=== PATIENT | female | born 1965 | race Caucasian/White ===

== ENCOUNTER → 2020-11-12 | Outpatient (CLI) | payer OTHER ==
[~2020-11-12] MED LIST: ALBUTEROL1.25 MG/3 INH; AMLODIPINE BESYL5 MG PO; ASPIR 8181 MG PO; ASPIRIN EC81 MG PO; COZAAR100 MG PO; CRESTOR10 MG PO; CYMBALTA60 MG PO; DULERA 200 MCG8.8 GM INH; FUROSEMIDE40 MG PO; GABAPENTIN100 MG PO; HYDROCODON-ACE1 EAC2 PO; HYDROXYZINE HCL10 MG PO; K-DUR TAB 10 M10 MEQ PO; K-TAB ER20 MEQ PO; MICARDIS80 MG PO; MICROZIDE12.5 MG PO; NORCO 7.5-3251 EACH PO; PROZAC10 MG PO; SINGULAIR10 MG PO; STIOLTO RESPIMAT INH; TUDORZA PRESS400 MCG INH; VENTOLIN HFA 66.7 GM INH; VITAMIN D3 PO; ZYLOPRIM 300 M300 MG PO
[2020-11-12 15:47] LABS: RED BLOOD COUNT 5.82 M/UL (4.00-5.10)
[2020-11-12 16:09] LABS: BUN/CREATININE RATIO 22 (0-10)
[2020-11-13 12:15] LABS: ANTISTREPTOLYSIN O AB 20.4 IU/mL (0.0-200.0); RHEUMATOID ARTHRITIS FACTOR <10.0 IU/mL (0.0-13.9)
[2020-11-14 07:11] LABS: VITAMIN D, 25-HYDROXY 35.3 ng/mL (30.0-100.0)
== END ==
LOC: LAB 14:29
PROVIDERS: Nurse Practitioner Family
DX: Z00.00 Encounter for general adult medical examination without abnormal findings (principal); K21.9 Gastro-esophageal reflux disease without esophagitis; M25.50 Pain in unspecified joint; R06.02 Shortness of breath; I10 Essential (primary) hypertension; R53.83 Other fatigue; E55.9 Vitamin D deficiency, unspecified; E78.5 Hyperlipidemia, unspecified; I27.81 Cor pulmonale (chronic)
CPT/HCPCS: 80053; 80061; 82607; 83880; 84439; 84443; 84550; 85025; 85652; 86038; 86060; 86140; 86431

== ENCOUNTER → 2020-11-27 | Outpatient (CLI) | payer OTHER | LOC: OPSV 12:00 | DX: D75.1 Secondary polycythemia (principal); R06.02 Shortness of breath | CPT/HCPCS: 99195 ==

== ENCOUNTER → 2020-11-28 | Outpatient (CLI) | payer OTHER ==
[2020-11-28 13:17] LABS: HEMOGLOBIN 15.4 gm/dl (12.3-15.3); RED BLOOD COUNT 5.29 M/UL (4.00-5.10); WHITE BLOOD COUNT 5.2 K/UL (4.5-11.0)
== END ==
LOC: LAB 12:02
PROVIDERS: Nurse Practitioner Family
DX: D75.1 Secondary polycythemia (principal)
CPT/HCPCS: 36415; 85025

== ENCOUNTER → 2021-01-14 | Outpatient (CLI) | payer OTHER ==
[2021-01-15 10:13] LABS: RHEUMATOID ARTHRITIS FACTOR <10.0 IU/mL (0.0-13.9)
[2021-01-15 23:08] LABS: CCP ANTIBODIES IGG/IGA 7 units (0-19)
== END ==
LOC: LAB 10:04
PROVIDERS: Nurse Practitioner Family
DX: M79.672 Pain in left foot (principal); M79.671 Pain in right foot; M25.50 Pain in unspecified joint; M79.10 Myalgia, unspecified site
CPT/HCPCS: 36415; 73630; 82550; 82728; 83520; 85652; 86140; 86200; 86431

== ENCOUNTER → 2021-01-30 | Outpatient (CLI) | payer MEDICARE, OTHER ==
[~2021-01-30] MED LIST changes: +OMNICEF 300 MG300 MG PO; +PREDNISONE50 MG PO; +ZITHROMAX250 MG PO
[2021-01-30 10:39] LABS: HEMOGLOBIN 14.7 gm/dl (12.3-15.3); RED BLOOD COUNT 5.6 M/UL (4.00-5.10); WHITE BLOOD COUNT 5.1 K/UL (4.5-11.0)
[2021-01-30 11:18] LABS: BUN/CREATININE RATIO 15 (0-10)
== END ==
LOC: LAB 09:40
PROVIDERS: Nurse Practitioner Family
DX: J44.9 Chronic obstructive pulmonary disease, unspecified (principal); I27.81 Cor pulmonale (chronic); R05 Cough; D50.9 Iron deficiency anemia, unspecified; J30.9 Allergic rhinitis, unspecified; R14.0 Abdominal distension (gaseous); G89.29 Other chronic pain; M54.5 Low back pain; M25.50 Pain in unspecified joint; M51.36 Other intervertebral disc degeneration, lumbar region; K21.9 Gastro-esophageal reflux disease without esophagitis; E78.5 Hyperlipidemia, unspecified; I10 Essential (primary) hypertension; E66.9 Obesity, unspecified; R53.83 Other fatigue; E53.8 Deficiency of other specified B group vitamins; E55.9 Vitamin D deficiency, unspecified
CPT/HCPCS: 36415; 71046; 80053; 80061; 82607; 82728; 84439; 84443; 85025

== ENCOUNTER 2021-02-17 20:41 | Emergency (ER) | payer MEDICARE, OTHER ==
[~2021-02-17 20:41] MED LIST changes: -OMNICEF 300 MG300 MG PO; -PREDNISONE50 MG PO; -ZITHROMAX250 MG PO
[2021-02-17 21:50] LABS: HEMOGLOBIN 14.8 gm/dl (12.3-15.3); RED BLOOD COUNT 5.63 M/UL (4.00-5.10); WHITE BLOOD COUNT 7.7 K/UL (4.5-11.0)
[2021-02-18] MEDS ORDERED: OMNICEF 300 MG300 MG PO (00:08)
[2021-02-18] MEDS ORDERED: ZITHROMAX250 MG PO (00:08)
[2021-02-18] MEDS ORDERED: PREDNISONE50 MG PO (00:08)
== END 2021-02-18 00:25 | disposition home or self-care (01) ==
LOC: ER1 20:41
PROVIDERS: Physician Assistant
DX: R09.02 Hypoxemia (principal); J44.9 Chronic obstructive pulmonary disease, unspecified; I10 Essential (primary) hypertension; F17.290 Nicotine dependence, other tobacco product, uncomplicated; Z88.2 Allergy status to sulfonamides; Z90.710 Acquired absence of both cervix and uterus; Z20.822 Contact with and (suspected) exposure to COVID-19
CPT/HCPCS: 0240U; 36600; 71045; 80053; 82550; 82553; 82803; 83605; 83874; 83880; 84484; 85025; 85379; 87040; 93005; 96374; 96375; 99284; J0696; J2930

== ENCOUNTER 2021-03-10 16:03 | Emergency (ER) | payer MEDICARE, OTHER ==
[~2021-03-10 16:03] MED LIST changes: +OMNICEF 300 MG300 MG PO; +PREDNISONE50 MG PO; +ZITHROMAX250 MG PO
[2021-03-10 17:58] LABS: HEMOGLOBIN 15.6 gm/dl (12.3-15.3); RED BLOOD COUNT 5.57 M/UL (4.00-5.10); WHITE BLOOD COUNT 6.4 K/UL (4.5-11.0)
[2021-03-10 18:18] LABS: BUN/CREATININE RATIO 15 (0-10)
== END 2021-03-10 21:16 | disposition home or self-care (01) ==
LOC: ER1 16:03
PROVIDERS: Physician Assistant Medical
DX: R53.1 Weakness (principal); R45.0 Nervousness; J44.9 Chronic obstructive pulmonary disease, unspecified; I10 Essential (primary) hypertension; Z99.81 Dependence on supplemental oxygen; Z20.822 Contact with and (suspected) exposure to COVID-19; Z90.710 Acquired absence of both cervix and uterus; Z88.2 Allergy status to sulfonamides; Z87.891 Personal history of nicotine dependence
CPT/HCPCS: 36600; 71045; 80053; 81001; 82803; 83880; 84484; 85025; 99285; U0002

== ENCOUNTER → 2021-04-19 | Outpatient (CLI) | payer MEDICARE, OTHER | LOC: KOH-I 15:44 | DX: R06.02 Shortness of breath (principal) | CPT/HCPCS: 71046 ==

== ENCOUNTER → 2021-05-10 | Outpatient (CLI) | payer MEDICARE, OTHER | LOC: MAMO 03-08 10:00 | DX: Z12.31 Encounter for screening mammogram for malignant neoplasm of breast (principal) | CPT/HCPCS: 77063; 77067 ==

== ENCOUNTER → 2021-07-04 | Outpatient (CLI) | payer MEDICARE, OTHER | LOC: EXRD 08:16 | DX: J20.9 Acute bronchitis, unspecified (principal); R09.02 Hypoxemia; R06.02 Shortness of breath | CPT/HCPCS: 71046 ==

== ENCOUNTER → 2021-08-28 | Outpatient (CLI) | payer MEDICARE, OTHER | LOC: HEART 5 13:14 | DX: R55 Syncope and collapse (principal); R00.2 Palpitations; R00.0 Tachycardia, unspecified ==

== ENCOUNTER 2021-11-01 15:22 | Inpatient (IN) | payer MEDICARE, OTHER ==
[~2021-11-01] VITALS: Ht 160 cm; Wt 104.5 kg
[~2021-11-01 15:22] MED LIST changes: -CRESTOR10 MG PO; -HYDROCODON-ACE1 EAC2 PO
[2021-11-01 15:58] LABS: HEMOGLOBIN 16.1 gm/dl (12.3-15.3); RED BLOOD COUNT 5.79 M/UL (4.00-5.10); WHITE BLOOD COUNT 8.7 K/UL (4.5-11.0)
[2021-11-01] MEDS ORDERED: CHLORTHALIDONE25 MG PO (23:00)
[2021-11-01] MEDS ORDERED: PROVENTIL HFA6.7 GM INH (23:09)
[2021-11-01] MEDS ORDERED: PROTONIX 40 MG40 M1 PO (23:10)
[2021-11-01] MEDS ORDERED: METOPROLOL SUCC25 MG PO (23:10)
[2021-11-01] MEDS ORDERED: AMLODIPINE BESY10 MG PO (23:10)
[2021-11-01] MEDS ORDERED: DULOXETINE HCL60 MG PO (23:11)
[2021-11-01] MEDS ORDERED: FERROUS SULFAT325 M2 PO (23:11)
[2021-11-01] MEDS ORDERED: LEVOCETIRIZINE D5 MG PO (23:15)
[2021-11-02 07:27] LABS: HEMOGLOBIN 16.1 gm/dl (12.3-15.3); RED BLOOD COUNT 6.19 M/UL (4.00-5.10)
[2021-11-02 07:37] LABS: WHITE BLOOD COUNT 6.5 K/UL (4.5-11.0)
[2021-11-02] MEDS ORDERED: STIOLTO RESPIMAT4 GM INH (07:50)
[2021-11-02] MEDS ORDERED: VITAMIN D21250 MCG PO (07:54)
[2021-11-02] MEDS ORDERED: VITAMIN E100 UNI2 PO (07:56)
[2021-11-02] MEDS ORDERED: VITAMIN D350 MC3 PO (07:56)
[2021-11-02] MEDS ORDERED: VITAMIN C1000 MG PO (07:57)
[2021-11-02 08:08] LABS: BUN/CREATININE RATIO 28 (0-10)
[2021-11-02] MEDS ORDERED: CRESTOR10 MG PO (09:09)
[2021-11-02] MEDS ORDERED: HYDROCODON-ACE1 EAC2 PO (09:10)
[2021-11-02] MEDS ORDERED: COLCHICINE 0.60.6 MG PO (22:53)
[2021-11-02] MEDS ORDERED: GABAPENTIN300 MG PO (23:01)
[2021-11-02] MEDS ORDERED: ALBUTEROL2.5 MG/3 M INH (23:02)
[2021-11-02] MEDS ORDERED: CYCLOBENZAPRINE5 MG PO (23:03)
[2021-11-02] MEDS ORDERED: FLONASE 0.05% N16 GM (23:07)
[2021-11-02] MEDS ORDERED: FAMOTIDINE40 MG PO (23:14)
[2021-11-02] MEDS ORDERED: HYDROXYZINE HCL10 MG PO (23:14)
[2021-11-02] MEDS ORDERED: IPRAT-ALBUT 0.5-3 ML INH (23:15)
[2021-11-03 05:58] LABS: HEMOGLOBIN 15.8 gm/dl (12.3-15.3); RED BLOOD COUNT 5.65 M/UL (4.00-5.10)
[2021-11-03 06:20] LABS: BUN/CREATININE RATIO 40 (0-10)
[2021-11-03 07:10] LABS: CANDIDA ALBICANS Not Detected (Negative); CANDIDA KRUSEI Not Detected (Negative); CANDIDA TROPICALIS Not Detected (Negative); ESCHERICHIA COLI Not Detected (Negative); HAEMOPHILUS INFLUENZAE Not Detected (Negative); KLEBSIELLA OXYTOCA Not Detected (Negative); KLEBSIELLA PNEUMONIAE Not Detected (Negative); KPC-CARBAPENEM-RESISTANCE GENE Not Detected (Negative); PROTEUS Not Detected (Negative); PSEUDOMONAS AERUGINOSA Not Detected (Negative); SERRATIA MARCESANS Not Detected (Negative); STAPHYLOCOCCUS AUREUS Not Detected (Negative); STREP AGALACTIAE (GROUP B) Not Detected (Negative); STREP PYOGENES (GROUP A) Not Detected (Negative); STREPTOCOCCUS Not Detected (Negative); vanA/B (VANCOMYCIN RESIST GENE Not Detected (Negative)
[2021-11-03 08:22] LABS: STAPHYLOCOCCUS DETECTED (Negative)
[2021-11-03] MEDS ORDERED: K-TAB ER20 MEQ PO (09:14)
[2021-11-03] MEDS ORDERED: MEDROL DOSEPAK 24 MG PO (09:14)
[2021-11-03] MEDS ORDERED: FUROSEMIDE40 MG PO (09:14)
[2021-11-03] MEDS ORDERED: LEVOFLOXACIN500 MG PO (09:14)
== END 2021-11-03 11:21 | disposition home or self-care (01) | DRG 291 ==
LOC: ER1 15:22 → CDU 17:02 → M/S 21:14
PROVIDERS: Emergency Medicine; ADMIT Internal Medicine
PROC: B24BZZZ Ultrasonography of Heart with Aorta (ICD-10-PCS; principal; 2021-11-02)
DX: I11.0 Hypertensive heart disease with heart failure (principal); J96.21 Acute and chronic respiratory failure with hypoxia; I50.33 Acute on chronic diastolic (congestive) heart failure; J44.1 Chronic obstructive pulmonary disease with (acute) exacerbation; Z20.822 Contact with and (suspected) exposure to COVID-19; E87.6 Hypokalemia; G47.33 Obstructive sleep apnea (adult) (pediatric); E78.5 Hyperlipidemia, unspecified; M10.9 Gout, unspecified; I27.20 Pulmonary hypertension, unspecified; K21.9 Gastro-esophageal reflux disease without esophagitis; G43.909 Migraine, unspecified, not intractable, without status migrainosus; I08.1 Rheumatic disorders of both mitral and tricuspid valves; J30.9 Allergic rhinitis, unspecified; M81.0 Age-related osteoporosis without current pathological fracture; I45.81 Long QT syndrome; M19.90 Unspecified osteoarthritis, unspecified site; M51.36 Other intervertebral disc degeneration, lumbar region; Z99.81 Dependence on supplemental oxygen; Z79.01 Long term (current) use of anticoagulants; Z79.82 Long term (current) use of aspirin; Z90.710 Acquired absence of both cervix and uterus; Z88.2 Allergy status to sulfonamides; Z88.8 Allergy status to other drugs, medicaments and biological substances; Z82.49 Family history of ischemic heart disease and other diseases of the circulatory system; Z83.3 Family history of diabetes mellitus; Z83.49 Family history of other endocrine, nutritional and metabolic diseases; Z87.891 Personal history of nicotine dependence; Z90.49 Acquired absence of other specified parts of digestive tract
CPT/HCPCS: ECHO; 0240U; 36415; 36600; 71045; 80048; 80053; 81001; 82550; 82553; 82803; 83605; 83735; 83880; 84132; 84484; 85025; 86140; 87040; 87077; 87150; 87186; 93005; 93306; 94640; 94664; 94760; 96372; 96374; 96375; 96376; 99285; J0456; J0696; J1650; J1940; J2920; J2930; J3480; J7030; J7050

== ENCOUNTER → 2021-12-20 | Outpatient (CLI) | payer MEDICARE, OTHER ==
[~2021-12-20] MED LIST changes: +ALBUTEROL2.5 MG/3 M INH; +AMLODIPINE BESY10 MG PO; +CHLORTHALIDONE25 MG PO; +COLCHICINE 0.60.6 MG PO; +CRESTOR10 MG PO; +CYCLOBENZAPRINE5 MG PO; +DULOXETINE HCL60 MG PO; +FAMOTIDINE40 MG PO; +FERROUS SULFAT325 M2 PO; +FLONASE 0.05% N16 GM; +GABAPENTIN300 MG PO; +HYDROCODON-ACE1 EAC2 PO; +IPRAT-ALBUT 0.5-3 ML INH; +LEVOCETIRIZINE D5 MG PO; +LEVOFLOXACIN500 MG PO; +MEDROL DOSEPAK 24 MG PO; +METOPROLOL SUCC25 MG PO; +PROTONIX 40 MG40 M1 PO; +PROVENTIL HFA6.7 GM INH; +STIOLTO RESPIMAT4 GM INH; +VITAMIN C1000 MG PO; +VITAMIN D21250 MCG PO; +VITAMIN D350 MC3 PO; +VITAMIN E100 UNI2 PO
[2021-12-20 12:25] LABS: BUN/CREATININE RATIO 28 (0-10)
== END ==
LOC: ECHO 11:38 → NM 13:00
PROVIDERS: Physician Assistant
DX: I20.9 Angina pectoris, unspecified (principal); E87.6 Hypokalemia; I49.3 Ventricular premature depolarization; R06.02 Shortness of breath; I27.20 Pulmonary hypertension, unspecified; R00.0 Tachycardia, unspecified
CPT/HCPCS: ECHO; 36415; 78452; 80048; 93017; 93306; A9502; J2785